=== PATIENT | male | born 1990 | race Hispanic/Latino ===

== ENCOUNTER 2022-07-13 19:27 | Emergency (ER) | payer OTHER ==
[~2022-07-13] VITALS: Ht 175.3 cm; Wt 86.2 kg
[2022-07-13] MEDS ORDERED: IBUPROFEN 600 MG TAB PO STA (20:31)
[2022-07-13] MEDS ORDERED: IBUPROFEN 600 MG TAB ONE (21:28)
[2022-07-13] MEDS ORDERED: HYDROCODONE/APAP 5MG-325MG TAB ONE (21:29)
[2022-07-13] MEDS ORDERED: HYDROCODONE/APAP 5MG-325MG TAB PO ONE (21:30)
[2022-07-13] MEDS ORDERED: HYDROCODON-ACE1 EA12 PO (22:01)
[2022-07-13] MEDS ORDERED: IBUPROFEN600 MG PO (22:04)
[2022-07-13 22:15] VITALS: BP 122/66
== END 2022-07-13 22:15 | disposition home or self-care (01) ==
LOC: EDSEX 19:27 → FSED 19:49
DX: S62.617A Displaced fracture of proximal phalanx of left little finger, initial encounter for closed fracture (principal); Y93.61 Activity, american tackle football; Y92.89 Other specified places as the place of occurrence of the external cause
CPT/HCPCS: 99284